=== PATIENT | male | born 1965 | race Caucasian/White ===

== ENCOUNTER 2018-11-26 11:11 | Emergency (ER) | payer MEDICAID, OTHER ==
[~2018-11-26] VITALS: Ht 167.6 cm; Wt 69.0 kg
[2018-11-26] MEDS ORDERED: IBUPROFEN 600MG TABLET PO STA (12:49)
[2018-11-27 13:06] VITALS: BP 110/80
== END 2018-11-27 13:11 | disposition home or self-care (01) ==
LOC: ER 11:11
DX: S62.616A Displaced fracture of proximal phalanx of right little finger, initial encounter for closed fracture (principal); Y08.89XA Assault by other specified means, initial encounter; Y93.89 Activity, other specified; Y92.89 Other specified places as the place of occurrence of the external cause; Y99.8 Other external cause status; J45.909 Unspecified asthma, uncomplicated; F20.9 Schizophrenia, unspecified
CPT/HCPCS: 73130; 99283